=== PATIENT | male | born 1970 | race Caucasian/White ===

== ENCOUNTER 2018-05-13 22:35 | Emergency (ER) | payer MEDICAID, OTHER ==
[~2018-05-13] VITALS: Ht 180.3 cm; Wt 100.0 kg
[2018-05-13 23:47] VITALS: BP 154/83
[2018-05-14] MEDS ORDERED: SULFAMETHOX/TRIMETH DS 800-160 MG/TABLET PO ONE (00:30)
[2018-05-14] MEDS ORDERED: CEPHALEXIN MONOHYDRATE 500 MG CAPSULE PO ONE (00:30)
[2018-05-14] MEDS ORDERED: IBUPROFEN 800 MG TABLET PO ONE (00:30)
== END 2018-05-14 00:38 | disposition home or self-care (01) ==
LOC: EMS 22:36
DX: L02.416 Cutaneous abscess of left lower limb (principal); F17.210 Nicotine dependence, cigarettes, uncomplicated; F12.90 Cannabis use, unspecified, uncomplicated; F19.90 Other psychoactive substance use, unspecified, uncomplicated; F14.90 Cocaine use, unspecified, uncomplicated
CPT/HCPCS: 99284